=== PATIENT | female | born 1940 | race Caucasian/White ===

== ENCOUNTER 2021-07-11 20:25 | Emergency (ER) | payer MEDICARE, OTHER, SELFPAY ==
[2021-07-11 20:31] VITALS: BP 158/72; PULSE 89; RESP 18; TEMP 36.5; O2SAT 96
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
[2021-07-11 21:29] LABS: Abs Immature Grans 0.04 10^3/uL (0.0-0.06); Absolute Lymphocyte Count 2.28 10^3/uL (1.2-3.4); Absolute Monocyte Count 0.81 10^3/uL (0.1-0.8); Basophils % 0.4; Eosinophils % 0.9; HCT 41.6 % (36.0-46.0); HGB 13.9 g/dL (11.2-15.7); Immature Grans % 0.4; MCH 30.3 pg (27.0-33.0); MCHC 33.4 % (32.0-36.0); MCV 90.8 fL (80-95); MPV 11.2 fL (8.0-11.0); Monocytes % 7.1; Neutrophils % 71.2; Nucleated RBC 0 %; Platelet Count 274 10^3/uL (130-400); RBC 4.58 10^6/uL (3.93-5.22); RDW 11.9 % (11.7-14.6); RDW-SD 39.8 fL; WBC 11.38 10^3/uL (4.4-10.8)
[2021-07-11 21:30] LABS: Absolute Basophil Count 0.05 10^3/uL (0.0-0.2)
[2021-07-11 21:46] LABS: Bilirubin Negative (Negative); Blood Negative (Negative); Clarity Clear (Clear); Glucose Negative (Negative); Ketones Negative (Negative); Leukocyte Esterase Negative (Negative); Nitrite Negative (Negative); Specific Gravity >= 1.030 (1.005-1.025); Urobilinogen 0.2 EU/dL (Up TO 0.2)
[2021-07-11 21:50] LABS: ALT 38 U/L (14-59); AST 33 U/L (15-37); Albumin 3.9 g/dL (3.4-5.0); Alkaline Phosphatase 101 U/L (46-116); Anion Gap 9.2 mmol/L (3-11); BUN 14 mg/dL (7-18); Bilirubin, Total 0.5 mg/dL (0.2-1.0); CO2 26.8 mmol/L (21.0-32.0); CREATININE 0.6 mg/dL (0.55-1.02); Calcium 9.1 mg/dL (8.5-10.1); Chloride 107 mmol/L (98-107); Glucose 114 mg/dL (74-106); Potassium 3.7 mmol/L (3.5-5.1); Sodium 143 mmol/L (136-145); Total Protein 7.6 g/dL (6.4-8.2)
[2021-07-11] MEDS: Ondansetron 4 MG/2 ML VIAL IVP (22:05)
[2021-07-11] MEDS: MORPHine 10 MG/ML VIAL 2 MG IVP (22:06)
[2021-07-11] MEDS: Omnipaque 350 MG/ML 100 ML BTL IJ (22:48)
[2021-07-11] MEDS: Normal Saline Flush 10 ML SYR IVP (22:49)
[2021-07-11 23:00] VITALS: BP 124/67; PULSE 74; RESP 16; TEMP 36.4; O2SAT 95
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
== END 2021-07-12 00:19 | disposition home or self-care (01) ==
PROVIDERS: Emergency Provider Nurse Practitioner Family
DX: S22.43XA Multiple fractures of ribs, bilateral, initial encounter for closed fracture (principal); S00.83XA Contusion of other part of head, initial encounter; V86.52XA Driver of snowmobile injured in nontraffic accident, initial encounter
CPT/HCPCS: 36415; 74177; 80053; 96374; 96375; 99285; 70486; 71260; 81003; 85025; 99284; J2270; J2405; J3490